=== PATIENT | female | born 1960 | race Caucasian/White ===

== ENCOUNTER 2018-02-04 12:28 | Outpatient (CLI) | payer OTHER | END 2018-02-04 12:29 | disposition home or self-care (01) | LOC: BICMAMMO 12:28 | PROVIDERS: ATTEND Obstetrics & Gynecology | DX: Z12.31 Encounter for screening mammogram for malignant neoplasm of breast (principal); R92.1 Mammographic calcification found on diagnostic imaging of breast | CPT/HCPCS: 77063; 77067 ==

== ENCOUNTER 2018-07-03 12:31 | Emergency (ER) | payer OTHER ==
--- NOTE | 2018-07-03 14:21 | ULT ---
ULTRASOUND WITH DOPPLER DUPLEX VENOUS LOWER EXTREMITY RIGHT: CPT: 67450 ICD-10-PCS: B54D INDICATION: Right lower extremity pain. TECHNIQUE: Color flow Doppler, spectral waveform analysis of pulsed Doppler, and jeffery-scale imaging with abdelrahman kenny and augmentation, were used to evaluate the right common femoral, femoral, popliteal, posterior tibial, and superficial femoral, veins; and the proximal portions of the profunda femoral and greater saphenous, veins. FINDINGS: There is appropriate compressibility and flow within the imaged deep vein system of the right lower e xtremity without evidence of deep venous thrombosis. IMPRESSION: No deep venous thrombosis of the right lower extremity. POS: [facility]
== END 2018-07-03 14:56 | disposition home or self-care (01) ==
LOC: ERS 12:31
DX: M79.604 Pain in right leg (principal)